=== PATIENT | female | born 1995 | race American Indian/Alaskan Native ===

== ENCOUNTER 2016-10-26 22:32 | Emergency (ER) | payer SELFPAY | END 2016-10-26 23:45 | disposition left against medical advice (07) | LOC: ED 22:32 | DX: M25.511 Pain in right shoulder (principal); Z53.21 Procedure and treatment not carried out due to patient leaving prior to being seen by health care provider ==

== ENCOUNTER 2016-11-16 12:59 | Emergency (ER) | payer SELFPAY ==
[2016-11-16 13:43] VITALS: BP 138/72
--- NOTE | 2016-11-16 16:45 | Emergency Department Report ---
Chief Complaint: Abdominal Pain Stated Complaint: KIDNEY PAIN Time Seen by Provider: 11/16/16 16:40 - HPI History of Present Illness: Patient reports that she's been having and abdominal pain to her lower abdomen and flank pain for the last 3 weeks. She states that she is prone to kidney infection but denies any history of kidney stones. She is also complaining of lower back pain to her flank. And says it's worse when she urinates in the morning. Denies any urinary burning frequency urgency at present but says she has from time to time. Denies any fever but reports chills. Pain is 7 out of 10 and achy and crampy. Last menstrual period is 2016 and patient is currently on her period. - ROS Review of Systems: All systems are negative unless stated in HPI above - Exam Vital Signs: Vital Signs 11/16/16 13:40 Temperature 98.6 F Pulse Rate 77 Respiratory 16 Rate Blood Pressure 138/72 O2 Sat by Pulse 100 Oximetry Physical Exam: Gen.: This is a 21-year-old female well-nourished well-developed in no acute distress. Abdomen: soft, no guarding or rebound tenderness. Positive CVA tenderness bilaterally. Patient able to ambulate without any difficulties, normal inspection and back and full range of motion. MSE screening note: Focused history and physical exam performed. Due to findings the following was ordered:see mdm ED Medical Decision Making - Medical Decision Making MDM: Patient screened by provider in triage area. Appropriate protocol initiated and patient to be seen in main ED by Dr. MCCABE Disposition for MSE Condition: Stable Instructions: Abdominal Pain (ED)
[2016-11-16 17:20] LABS: Basophils % (Auto) 1.3 % (0.0-1.8); Hematocrit 40.1 % (30.3-42.9); Hemoglobin 13.1 gm/dl (10.1-14.3); Mean Corpuscular HGB Conc 33 % (30-34); Mean Corpuscular Volume 78 fl (79-97); Platelet Count 411 K/mm3 (140-440); Red Blood Count 5.11 M/mm3 (3.65-5.03); Red Cell Distribution Width 15.8 % (13.2-15.2); White Blood Count 10.8 K/mm3 (4.5-11.0)
[2016-11-16 17:26] LABS: Albumin 3.9 g/dL (3.9-5); Albumin/Globulin Ratio 0.9 %; BUN/Creatinine Ratio 16; Blood Urea Nitrogen 8 mg/dL (7-17); Calcium 8.9 mg/dL (8.4-10.2); Carbon Dioxide 22 mmol/L (22-30); Chloride 99.8 mmol/L (98-107); Glucose 100 mg/dL (65-100); Lipase 28 units/L (13-60); Sodium 135 mmol/L (137-145); Total Protein 8.2 g/dL (6.3-8.2)
[2016-11-16 17:29] LABS: Bacteria,Urine 4+ /HPF (Negative); Bilirubin,Urine NEG (Negative); Blood,Urine NEG (Negative); Ketones,Urine NEG (Negative); Leukocyte Esterase,Urine NEG (Negative); Mucus,Urine 1+ /HPF; Nitrite,Urine NEG (Negative); Protein,Urine <15 mg/dL mg/dL (Negative); Urobilinogen,Urine < 2.0 mg/dL (<2.0)
[2016-11-16 17:30] LABS: Alanine Aminotransferase 15 units/L (7-56); Alkaline Phosphatase 60 units/L (35-129); Anion Gap 18 mmol/L; Potassium 4.9 mmol/L (3.6-5.0)
[2016-11-16 17:32] LABS: Mean Corpuscular Hemoglobin 26 pg (28-32)
== END 2016-11-17 06:40 | disposition left against medical advice (07) ==
LOC: ED 12:59
DX: N23 Unspecified renal colic (principal); Z53.21 Procedure and treatment not carried out due to patient leaving prior to being seen by health care provider
CPT/HCPCS: 36415; 80053; 81001; 83690; 84703; 85025